=== PATIENT | female | born 1940 | race Caucasian/White ===

== ENCOUNTER 2018-12-28 15:28 | Emergency (ER) | payer MEDICARE ==
[~2018-12-28] VITALS: Ht 167.6 cm; Wt 121.6 kg
[~2018-12-28 15:28] MED LIST: CARVEDILOL12.5 MG PO; ENDOCET 650 MG-1 TA1 PO; LEVOTHROID0.125 MG PO; MULTI VITAMINS1 TAB PO
== END 2018-12-28 18:58 | disposition home or self-care (01) ==
LOC: ED 15:28
DX: M54.16 Radiculopathy, lumbar region (principal); R51 Headache; Z79.899 Other long term (current) drug therapy; Z91.048 Other nonmedicinal substance allergy status; Z87.828 Personal history of other (healed) physical injury and trauma; Z87.820 Personal history of traumatic brain injury